=== PATIENT | female | born 1955 | race Caucasian/White ===

== ENCOUNTER 2018-10-25 06:33 | Day surgery (SDC) | payer OTHER ==
[~2018-10-25 06:33] MED LIST: CYTOTEC200 MCG PO; IRBESARTAN-HCT1 EAC1 PO
[2018-10-25] MEDS ORDERED: TYLENOL EXTRA500 MG PO (09:12)
== END 2018-10-25 13:15 | disposition home or self-care (01) ==
LOC: CIR.AMB 06:33 → EDSTATUS 08:15 → CIR.AMB 08:15
DX: N84.0 Polyp of corpus uteri (principal)